=== PATIENT | female | born 1980 | race Caucasian/White ===

== ENCOUNTER → 2016-10-12 | Outpatient (CLI) | payer BC ==
--- NOTE | 2016-10-12 16:26 | Diagnostic Imaging Report ---
EXAMINATION: OB ultrasound. INDICATION: Check growth. FINDINGS: There are no previous exams available for comparison. Reportedly, the patient has had a prior ultrasound exam which indicated that the gestational age was approximately 29 weeks 0 days. Neither that exam nor a report of that study is available at this time however. There is a single live fetus in cephalic presentation. heart motion is noted and at a rate of 160 bpm is recorded. A complete survey is not performed, but there are no obvious abnormalities identified. The growth parameters are as follows: BPD: 7.74, 31 weeks 1 day. Head circumference: 27.38, 30 weeks 0 days. Abdominal circumference: 27.60, 31 weeks 5 days. Femur length: 6.02, 31 weeks 3 days. The estimated weight is 1744 g. The LMP percentile is 98%. The placenta is anterior and there is no previa. The amniotic fluid volume is 12.0 cm (normal 8-22 cm). IMPRESSION: 1. There is a single live fetus of approximately 31 weeks 3 days gestation +/- 2.5 weeks. By this exam, the EDC is December 13, 2016. 2. There are no obvious abnormalities identified. 3. The growth parameters suggest that the fetus is at the upper most limits of normal in size. Dictated by: Dictated on workstation # [id number]
== END ==
LOC: RAD 12:44
PROVIDERS: ATTEND Obstetrics & Gynecology
DX: O26.843 Uterine size-date discrepancy, third trimester (principal); Z3A.31 31 weeks gestation of pregnancy
CPT/HCPCS: 76805

== ENCOUNTER → 2016-11-09 | Outpatient (CLI) | payer BC ==
--- NOTE | 2016-11-09 14:36 | Diagnostic Imaging Report ---
INDICATION: Evaluate growth and dates. COMPARISON: 10/12/2016. DISCUSSION: Transabdominal sonographic evaluation of the gravid uterus was performed. There is a single live intrauterine at 32 weeks 6 days by sonographic measurements. There has been the expected interval growth from the first ultrasound. The EDC by today's ultrasound is 12/29/2016. The presentation is cephalic. There is a normal amniotic fluid index. A Grade 1 placenta is located anteriorly with no placenta previa. The heart rate measures 142 BPM. The biparietal diameter measures 8.7 cm. The head circumference measures 30.4 cm. The abdominal circumference measures 30.9 cm. The femoral length measures 5.1 cm on the right which correlates to a 27 week 4 day gestational age. The left femur measures 6.7 cm which correlates to a 34 week 2 day gestational age. The estimated weight is 2042 grams. IMPRESSION: 1. There is a single live intrauterine at 32 weeks 6 days by sonographic measurements. 2. There are discordant femur lengths present with the right correlating to a gestational age of 27 weeks 4 days and the left correlating with a gestational age of 34 weeks 2 days. Recommend clinical correlation. Dictated by: Dictated on workstation # [id number]
== END ==
LOC: RAD 12:49
PROVIDERS: ATTEND Obstetrics & Gynecology
DX: Z36 Encounter for antenatal screening of mother (principal); Z3A.32 32 weeks gestation of pregnancy
CPT/HCPCS: 76816

== ENCOUNTER 2016-12-13 14:16 | Outpatient (CLI) | payer BC ==
[~2016-12-13] VITALS: Ht 170.2 cm; Wt 135.2 kg
[2016-12-13] MEDS ORDERED: PREN-37 PO (14:23)
[2016-12-13 14:28] VITALS: BP 142/83
== END 2016-12-13 14:40 | disposition home or self-care (01) ==
LOC: PREOP 14:16
PROVIDERS: ATTEND Obstetrics & Gynecology
DX: Z01.818 Encounter for other preprocedural examination (principal); Z11.2 Encounter for screening for other bacterial diseases; O35.1XX0 Maternal care for (suspected) chromosomal abnormality in fetus, not applicable or unspecified; Q74.9 Unspecified congenital malformation of limb(s)
CPT/HCPCS: 87081

== ENCOUNTER 2016-12-21 06:06 | Inpatient (IN) | payer BC ==
[~2016-12-21] VITALS: Ht 170.2 cm; Wt 135.2 kg
[~2016-12-21 06:06] MED LIST: CITRIC ACID/SOB CIT (BICITRA) 30 ML UDC ONE; FAMOTIDINE 20MG/2ML IV (PEPCID) ONE; LACTATED RINGERS 2,000 ML IV ONE; METOCLOPRAMIDE INJ 10 MG/2 ML (REGLAN) ONE; PREN-37 PO
[2016-12-21] MEDS ORDERED: LACTATED RINGERS 1,000 ML IV PRN (06:15)
[2016-12-21] MEDS ORDERED: CITRIC ACID/SOB CIT (BICITRA) 30 ML UDC PO ONE (06:15)
[2016-12-21] MEDS ORDERED: FAMOTIDINE 20MG/2ML IV (PEPCID) IV ONE (06:15)
[2016-12-21] MEDS ORDERED: METOCLOPRAMIDE INJ 10 MG/2 ML (REGLAN) IV ONE (06:15)
[2016-12-21 06:16] VITALS: BP 137/78
[2016-12-21] MEDS: LACTATED RINGERS 1,000 ML IV PRN ×2 (06:32→07:16)
[2016-12-21 06:33] LABS: BASOPHILS % (AUTO) 0 % (0-10); EOSINOPHILS # (AUTO) 0.1 10^3/uL (0.0-0.3); EOSINOPHILS % (AUTO) 1 % (0-10); LYMPHOCYTES # (AUTO) 1.9 X 10^3 (1.0-4.0); LYMPHOCYTES % (AUTO) 16 % (12-44); MEAN CORPUSCULAR HEMOGLOBIN 26 PG (25-34); MEAN CORPUSCULAR HGB CONC 33 G/DL (32-36); MEAN CORPUSCULAR VOLUME 80 FL (80-99); MEAN PLATELET VOLUME 11.1 FL (7.4-10.4); MONOCYTES # (AUTO) 0.7 X 10^3 (0.0-1.0); MONOCYTES % (AUTO) 6 % (0-12); NEUTROPHILS # (AUTO) 9.5 X 10^3 (1.8-7.8); NEUTROPHILS % (AUTO) 77 % (42-75); PLATELET COUNT 175 10^3/uL (130-400); RED BLOOD COUNT 4.84 10^6/uL (4.35-5.85); RED CELL DISTRIBUTION WIDTH 15.5 % (10.0-14.5); WHITE BLOOD COUNT 12.3 10^3/uL (4.3-11.0)
[2016-12-21] MEDS ORDERED: ceFAZolin 2 GM/50 ML NS 50 ML ONE (06:37)
[2016-12-21] MEDS ORDERED: ceFAZolin 2 GM/50 ML NS 50 ML IV ONE (07:00)
[2016-12-21] MEDS ORDERED: fentaNYL INJECTION 100 MCG/2 ML AMP ONE (07:01)
[2016-12-21] MEDS ORDERED: OXYTOCIN/NORMAL SALINE 1,000 ML IV ONE (07:01)
--- NOTE | 2016-12-21 07:08 | History & Physical-OB ---
OB - Chief Complaint & HPI Date/Time Date of Admission: Date of Admission: Dec 21, 2016 at 06:06 Time Seen by Provider: 06:55 Chief Complaint/History OB-Reason for Admission/Chief: Obstetrical Complication Hx : 1 Hx Para: 0 Expected Date of Delivery: Dec 28, 2016 Gestational Age in Weeks: 39 Gestational Age in Days: 0 Other reason for admission: Bertha is a 36 y/o G1 @ 39w0d by 7 wk sono who presents for scheduled CD. Her was complicated by the third trimester dx of discordant femur lengths (R<L, R < 5%tile) - normal at 20 wga. She was seen by MFM who offered invasive testing however the patient declined after counseling. He was concerned that osteogenesis imperfecta could be a potential diagnosis, and discussed primary CD with her. I did as well and she elected to undergo this after extensive counseling on risks, benefits and alternatives. otherwise c/b class III obesity with normal GDM screening, AMA ( normal cffDNA), anemia on iron. History of Labs B+ Antibody neg RI Hep B neg Hep C neg HIV neg RPR NR GBS neg GC/CT neg/neg Allergies and Home Medications Allergies Coded Allergies: Sulfa (Sulfonamide Antibiotics) (Verified Allergy, Unknown, 12/13/16) Home Medications Vit/Iron Fumarate/FA 1 Each Tablet, 1 EACH PO DAILY, (Reported) OB - History Hx of Present Care: Yes Ultrasounds: Abnormal US findings (see HPI - discordant femur length (multiple sonos and visits with MFM)) Obstetrical Complications: Other (anemia, on iron) Medical Complications: Other (class III obesity) Information Induced Hypertension: No Maternal Gestational Diabetes: No Hemorrhage: No Obstetrical History Hx : 1 Delivery History Hx Dystocia: No Hx Forceps Assisted Delivery: No Hx Vacuum Extraction Assisted: No Hx Placenta Abnormality: No Hx Distress: No Hx Large For Gestational Age I: Yes Hx Small for Gestational Age I: No Hx Section: No Hx Vaginal Delivery Post C-Sec: No Hx Blood Disorders: No Adverse Rxn to Tranfusion: No Patient Past Medical History obesity Social History/Family History HIV/AIDS: No Recent Infectious Disease Expo: No Sexually Transmitted Disease: No Alcohol Use: Denies Use Recreational Drug Use: No Immunizations Hepatitis A: No Hepatitis B: No Tetanus Booster (TDap): Less than 5yrs Rubella: immune RPR/VDRL: Negative GBS Status: Negative HBsAG: Negative OB - Admission Exam Physical Exam Time Seen by Provider: 06:55 Vitals: per documentation analyst HEENT: NCAT Heart: Rhythm Normal Lungs: Clear Abdomen: Gravid Extremities: Edema (1+ pitting edema to mid tibia bilaterally) Reflexes: Normal Heart Rate: 140's Accelerations: Accelerations Present Decelerations: No Decelerations Short Term Variability: Present Residential Variability: Average (6-25) Contractions on Admission: 6-10 Minutes Apart Intensity: Mild Labs Laboratory Tests Test 12/21/16 06:25 Range/Units White Blood Count 12.3 H 4.3-11.0 10^3/uL Red Blood Count 4.84 4.35-5.85 10^6/uL Hemoglobin 12.8 11.5-16.0 G/DL Hematocrit 39 35-52 % Mean Corpuscular Volume 80 80-99 FL Mean Corpuscular Hemoglobin 26 25-34 PG Mean Corpuscular Hemoglobin Concent 33 32-36 G/DL Red Cell Distribution Width 15.5 H 10.0-14.5 % Platelet Count 175 130-400 10^3/uL Mean Platelet Volume 11.1 H 7.4-10.4 FL Neutrophils (%) (Auto) 77 H 42-75 % Lymphocytes (%) (Auto) 16 12-44 % Monocytes (%) (Auto) 6 0-12 % Eosinophils (%) (Auto) 1 0-10 % Basophils (%) (Auto) 0 0-10 % Neutrophils # (Auto) 9.5 H 1.8-7.8 X 10^3 Lymphocytes # (Auto) 1.9 1.0-4.0 X 10^3 Monocytes # (Auto) 0.7 0.0-1.0 X 10^3 Eosinophils # (Auto) 0.1 0.0-0.3 10^3/uL Basophils # (Auto) 0.0 0.0-0.1 10^3/uL OB - Assessment/Plan/Diagnosis Plan Plan: Section Other Plan 36 y/o G1 @ 39w0d with scheduled CD for concern for osteogenesis imperfecta due to discordant femur lengths. GBS neg Class III obesity Rh+ RI Anemia on iron Bertha, her spouse and I have had long conversations about the risks, benefits and alternatives to a primary CD for the purpose of reducing risk to the if osteogenesis imperfecta is diagnosed. We also discussed the risk of her requiring a CD given the suspected large EFW of the fetus and her primiparous status and obesity. I do think the risk to the fetus is overall low , however she is unwilling to accept that risk and I understand this. Will proceed with CD. Risks specifically of bleeding, infection, damage to surrounding structures (including but not limited to bowel, bladder, ureter, nerves, blood vessels, structures as well) were discussed. Anc john-op Spinal for analgesia To OR for CD this morning. Dr. Singleton to be in attendance - greatly appreciate her assistance. Dr. Murrell in [place] will be tag clerk for baby and has already been contacted regarding the concerning ultrasound findings. RAÚL LACEY MD Dec 21, 2016 07:07
--- NOTE | 2016-12-21 07:11 | Cesarean Section Operative ---
Procedure Procedure Note Date of Procedure: 12/21/16 Pre-operative Diagnosis: Bertha Parra is a 36 y/o G1 @ 39w0d with primary CD for discordant femur lengths and concern for osteogenesis imperfecta, class III obesity Post-operative Diagnosis: Same Procedure: Primary low transverse section Physician: Ewelina Rivero MD Knit Goods Washer: Evelyn Silveira APRN who was vital to the case for retraction of necessary neurovascular structures Estimated blood loss: 600 mL Specimens: Placenta to pathology, cord blood to lab Disposition: Recovery room, stable Findings: Viable female , Apgars 8/9, weight 8lb2oz, intact placenta, 3vc, normal appearing uterus, tubes, and ovaries. Indications: Bertha Parra is a 36 y/o G1 @ 39w0d who presented for scheduled CD for the concern for osteogenesis imperfecta due to possible fracture in the right femur on ultrasound, counseled and seen by maternal medicine. Procedure Details: The patient was seen in pre-op and the procedure was discussed with the patient in full, including the risks, benefits, and alternatives. All questions were answered. The patient was taken to the operating room and a time out was performed, verifying patient and procedure. After spinal anesthesia was placed by our anesthesia colleagues, the patient was placed in the dorsal supine with leftward tilt for uterine displacement. Her abdomen was then prepped and draped in the typical sterile fashion. A Pfannenstiel skin incision was made using a scalpel and carried down through the underlying fascia. The fascia was incised in the midline and tented up using Manolo clamps. On both the inferior and superior fascia side the rectus muscle was dissected off bluntly and sharply using Lynne scissors. The peritoneum was identified and entered bluntly in the midline. This was then stretched laterally using manual strength. After entering the abdominal cavity and confirming lack of intraperitoneal adhesions, an extra-large Ferny retractor was placed and the lower uterine segment was visualized. A bladder flap was created with the use of Metzenbaum scissors. A scalpel was utilized to make a low transverse uterine incision. Amniotomy was performed with return of clear fluid. The infant's head was grasped and brought to the level of the incision. Fundal pressure was applied and was delivered without difficulty. Mouth and nares were suctioned with bulb suction. After the umbilical cord was clamped and cut, the infant was handed off to the pediatric staff. A sample of cord blood was then obtained. The placenta was delivered intact via uterine massage. The uterus was cleared of all clots and debris. The uterine incision was closed using 0 Vicryl in a running locked fashion. A second imbricated layer was placed using 0 Vicryl in a running fashion as well. Again the hysterotomy site was examined and hemostasis was observed. The bilateral tubes and ovaries appeared normal. The abdominal gutters were cleared of all clots and debris. A final check of the uterine incision showed it to be hemostatic. Intercede was placed on the hysterotomy. The peritoneum was closed using 3-0 Vicryl in a running fashion. The fascia was closed with 0 Vicryl in a running fashion. The subcutaneous space was hemostatic, and irrigated. The subcutaneous space was closed with 3-0 Vicryl in several single interrupted stitches. The skin was then closed using 4- 0 Monocryl in a running subcuticular fashion. The skin edges were reapproximated together and were hemostatic. A pressure dressing was applied. All sponge, lap and needle counts were correct at the end of the procedure per nursing. Vitals - Labs Labs Laboratory Tests 12/21/16 06:25: White Blood Count 12.3H, Red Blood Count 4.84, Hemoglobin 12.8, Hematocrit 39, Mean Corpuscular Volume 80, Mean Corpuscular Hemoglobin 26, Mean Corpuscular Hemoglobin Concent 33, Red Cell Distribution Width 15.5H, Platelet Count 175, Mean Platelet Volume 11.1H, Neutrophils (%) (Auto) 77H, Lymphocytes (%) (Auto) 16, Monocytes (%) (Auto) 6, Eosinophils (%) (Auto) 1, Basophils (%) (Auto) 0, Neutrophils # (Auto) 9.5H, Lymphocytes # (Auto) 1.9, Monocytes # (Auto) 0.7, Eosinophils # (Auto) 0.1, Basophils # (Auto) 0.0 EWELINA RIVERO MD Dec 21, 2016 07:11
[2016-12-21] MEDS ORDERED: DOCU-143 PO (07:21)
[2016-12-21] MEDS ORDERED: IBUP-1773 PO (07:21)
[2016-12-21] MEDS ORDERED: OXYC-197 PO (07:21)
--- NOTE | 2016-12-21 07:23 | Discharge Inst-Women's Service ---
Discharge Inst-Women's Serv Depart Medication/Instructions New, Converted or Re-Newed RX: RX on Chart (and transmitted to pharmacy) Final Diagnosis TIUP, femur length discrepancy, primary CD Consults/Follow Up Additional Follow Up: Yes Orders/Referrals One week with Dr. Rivero Six weeks with Dr. Rivero Activity Driving Instructions: No Driving for 1 Week (or while taking narcotic pain medication) NO SMOKING: NO SMOKING Nothing Inside Vagina: No Douching, No Gully, No Tampons Other Activity No strenuous activity No lifting > 10 lb Diet Discharge Diet: No Restrictions Symptoms to Report to : Bleeding Excessive, Pain Increased, Fever Over 101 Degrees F, Pain/Pressure in Chest, Vaginal Bleeding Increase, Dizziness/Fainting , Nausea/Vomiting, Shortness of Breath For Any Problems or Questions: Contact Your Physician, Go to Emergency Room Skin/Wound Care Infection Signs and Symptoms: Increased Redness, Foul Odor of Wound, Increased Drainage Operative Area Clean and Dry: Keep Incision Clean/Dry Stitches/[place]/Dermabond: Dermabond, Care of Stitches Bathing Instructions: RAÚL Walton MD Dec 21, 2016 07:23
[2016-12-21] MEDS ORDERED: PHENYLEPHRINE 100 MCG/ML 10 ML (ANESTHESIA) SYR ONE (07:24)
[2016-12-21] MEDS ORDERED: KETOROLAC 30 MG/ML VIAL ONE (09:46)
[2016-12-21] MEDS ORDERED: OXYTOCIN/NORMAL SALINE 500 ML IV SCH (09:52)
[2016-12-21] MEDS ORDERED: oxyCODONE/APAP 5/325MG (PERCOCET 5) TABLET PO PRN (10:00)
[2016-12-21] MEDS ORDERED: morphine INJ 4 MG/ML 1 ML (VIAL/SYRINGE) IVP PRN (10:00)
[2016-12-21] MEDS ORDERED: KETOROLAC 30 MG/ML VIAL IVP SCH (10:00)
[2016-12-21 10:45] VITALS: BP 132/77
[2016-12-21] MEDS ORDERED: CATHETER FLUSH 10 ML SYR IV SCH ×2 (14:00)
[2016-12-21 14:27] VITALS: BP 146/88
[2016-12-21] MEDS ORDERED: IBUPROFEN 600 MG (MOTRIN) TAB PO ONE (18:45)
[2016-12-21] MEDS: DOCUSATE SODIUM 100 MG (COLACE) CAP PO SCH (20:59)
[2016-12-21 21:00] VITALS: BP 142/93
[2016-12-22] MEDS ORDERED: IBUPROFEN 800 MG (MOTRIN) TAB PO ONE ×2 (00:27→06:14)
[2016-12-22] MEDS: IBUPROFEN 800 MG (MOTRIN) TAB PO SCH ×2 (00:33→06:22)
[2016-12-22 00:35] VITALS: BP 145/87
[2016-12-22 04:57] VITALS: BP 142/92
[2016-12-22 05:10] LABS: BASOPHILS % (AUTO) 0 % (0-10); EOSINOPHILS # (AUTO) 0.1 10^3/uL (0.0-0.3); EOSINOPHILS % (AUTO) 1 % (0-10); LYMPHOCYTES # (AUTO) 1.2 X 10^3 (1.0-4.0); LYMPHOCYTES % (AUTO) 12 % (12-44); MEAN CORPUSCULAR HEMOGLOBIN 26 PG (25-34); MEAN CORPUSCULAR HGB CONC 32 G/DL (32-36); MEAN CORPUSCULAR VOLUME 81 FL (80-99); MEAN PLATELET VOLUME 10.8 FL (7.4-10.4); MONOCYTES # (AUTO) 0.6 X 10^3 (0.0-1.0); MONOCYTES % (AUTO) 6 % (0-12); NEUTROPHILS # (AUTO) 8.1 X 10^3 (1.8-7.8); NEUTROPHILS % (AUTO) 81 % (42-75); PLATELET COUNT 141 10^3/uL (130-400); RED CELL DISTRIBUTION WIDTH 15.5 % (10.0-14.5); WHITE BLOOD COUNT 9.9 10^3/uL (4.3-11.0)
[2016-12-22 07:51] LABS: ALANINE AMINOTRANSFERASE 10 U/L (0-55); ALBUMIN 2.9 GM/DL (3.2-4.5); ANION GAP 11 MMOL/L (5-14); ASPARTATE AMINO TRANSFERASE 19 U/L (5-34); BILIRUBIN,TOTAL 0.2 MG/DL (0.1-1.0); BLOOD UREA NITROGEN 8 MG/DL (7-18); BUN/CREATININE RATIO 13 (0-20); CALCIUM 9.1 MG/DL (8.5-10.1); CARBON DIOXIDE 19 MMOL/L (21-32); CHLORIDE 107 MMOL/L (98-107); CREATININE SERUM 0.62 MG/DL (0.60-1.30); GFR ESTIMATED > 60; GLUCOSE 95 MG/DL (70-105); LACTATE DEHYDROGENASE 270 U/L (125-220); POTASSIUM 3.9 MMOL/L (3.6-5.0); SODIUM 137 MMOL/L (135-145); TOTAL PROTEIN 6.1 GM/DL (6.4-8.2); URIC ACID 6.2 MG/DL (2.6-7.2)
--- NOTE | 2016-12-22 08:03 | Postpartum Progress Note ---
Post Op Post-operative Day #1 Subjective: Patient is without complaints. Ambulating, voiding after szymanski removed. Tolerating a regular diet without nausea or vomiting. Normal lochia. Pain is well controlled with oral pain medications. Passing flatus. Breast feeding. Objective: VS - Last 72 Hours, by Label 12/21/16 12/21/16 12/21/16 12/21/16 06:16 10:45 14:27 15:41 Temp 98.7 98.5 98.3 Pulse 115 94 98 Resp 20 20 20 B/P (MAP) 137/78 132/77 146/88 Pulse Ox 96 98 O2 Delivery Room Air Room Air Room Air Room Air 12/21/16 12/22/16 12/22/16 21:00 00:35 04:57 Temp 98.6 98.2 97.6 Pulse 91 88 89 Resp 18 18 18 B/P (MAP) 142/93 145/87 142/92 Pulse Ox 96 96 97 O2 Delivery Room Air Room Air Room Air Physical Exam: General - Alert and oriented, no apparent distress Abdomen - Soft, appropriately tender to palpation, non-distended, fundus firm at umbilicus Incision - clean, dry and intact; no erythema or induration, no drainage Extremities - no edema, negative Zina's bilaterally Assessment: 36 y/o post-operative day # 1, status post PLTCS due to concern for osteogenesis imperfecta. Recovering well, hemodynamically stable Acute blood loss anemia Hgb 10.7 Obesity BMI 47 HTN noted Plan: Routine post-operative care. Encourage breast feeding. Encourage ambulation. VTE prophylaxis: SCDs, lovenox BPs elevated, check HELLP labs, normal during , no si/sx pre-eclampsia Ferrous sulfate supplementation. Plan for discharge POD#2 or 3. Vitals - Labs Vital Signs - I&O Vital Signs Date Time Temp Pulse Resp B/P (MAP) Pulse Ox O2 Delivery O2 Flow Rate FiO2 12/22/16 04:57 97.6 89 18 142/92 97 Room Air 12/22/16 00:35 98.2 88 18 145/87 96 Room Air 12/21/16 21:00 98.6 91 18 142/93 96 Room Air 12/21/16 15:41 Room Air 12/21/16 14:27 98.3 98 20 146/88 98 Room Air 12/21/16 10:45 98.5 94 20 132/77 96 Room Air I & O 12/22/16 07:00 Intake Total 3400 ml Output Total 3025 ml Balance 375 ml Labs Laboratory Tests 12/22/16 04:51: White Blood Count 9.9, Red Blood Count 4.10L, Hemoglobin 10.7L, Hematocrit 33L, Mean Corpuscular Volume 81, Mean Corpuscular Hemoglobin 26, Mean Corpuscular Hemoglobin Concent 32, Red Cell Distribution Width 15.5H, Platelet Count 141, Mean Platelet Volume 10.8H, Neutrophils (%) (Auto) 81H, Lymphocytes (%) (Auto) 12, Monocytes (%) (Auto) 6, Eosinophils (%) (Auto) 1, Basophils (%) (Auto) 0, Neutrophils # (Auto) 8.1H, Lymphocytes # (Auto) 1.2, Monocytes # (Auto) 0.6, Eosinophils # (Auto) 0.1, Basophils # (Auto) 0.0 12/22/16 04:54: Sodium Level 137, Potassium Level 3.9, Chloride Level 107, Carbon Dioxide Level 19L, Anion Gap 11, Blood Urea Nitrogen 8, Creatinine 0.62, Estimat Glomerular Filtration Rate > 60, BUN/Creatinine Ratio 13, Glucose Level 95, Uric Acid 6.2, Calcium Level 9.1, Total Bilirubin 0.2, Aspartate Amino Transf (AST/SGOT) 19, Alanine Aminotransferase (ALT/SGPT) 10, Alkaline Phosphatase 87, Lactate Dehydrogenase 270H, Total Protein 6.1L, Albumin 2.9L RAÚL LACEY MD Dec 22, 2016 08:03
--- NOTE | 2016-12-22 08:33 | Anesthesia-Regional Post-Op ---
Regional Patient Condition Mental Status: Alert, Oriented x3 Circulation: Same as Pre-Op Headache: Absent Sensation: Full Recovery Motor Block: Absent Post Op Complications Complications None Follow Up Care/Instructions Patient Instructions None needed. Anesthesia/Patient Condition Patient is doing well, no complaints, stable vital signs, no apparent adverse anesthesia problems. No complications reported per nursing. D/C home per [facility] Criteria: DAVID Lawrence DO Dec 22, 2016 08:33
[2016-12-22 09:13] VITALS: BP 125/81
[2016-12-22] MEDS: DOCUSATE SODIUM 100 MG (COLACE) CAP PO SCH ×2 (09:13→21:27)
[2016-12-22] MEDS: ENOXAPARIN 40 MG/0.4 ML (LOVENOX) SYR SC SCH (09:13)
[2016-12-22 12:40] VITALS: BP 132/81
[2016-12-22 17:45] VITALS: BP 143/80
[2016-12-22 21:37] VITALS: BP 132/79
[2016-12-23] VITALS: BP 131/74
[2016-12-23] MEDS: IBUPROFEN 800 MG (MOTRIN) TAB PO SCH ×3 (00:03→12:29)
[2016-12-23 06:00] VITALS: BP 126/75
[2016-12-23 08:15] VITALS: BP 126/84
[2016-12-23] MEDS: ENOXAPARIN 40 MG/0.4 ML (LOVENOX) SYR SC SCH (08:33)
[2016-12-23] MEDS: DOCUSATE SODIUM 100 MG (COLACE) CAP PO SCH (08:33)
--- NOTE | 2016-12-23 08:51 | Progress Note-Standard ---
Standard Progress Note Progress Notes/Assess & Plan Date Seen by Provider: Dec 23, 2016 Time Seen by Provider: 07:30 Progress/Assessment & Plan Patient doing well. Eating breakfast upon my arrival. Ambulating and voiding freely, requesting discharge. Vital Sign - Last 24 Hours 12/22/16 12/22/16 12/22/16 12/22/16 09:13 12:40 17:45 21:37 Temp 97.8 99.2 98.7 97.8 Pulse 93 96 97 92 Resp 20 18 18 18 B/P (MAP) 125/81 132/81 143/80 132/79 O2 Delivery Room Air Room Air Room Air Room Air 12/23/16 12/23/16 12/23/16 00:00 06:00 08:15 Temp 98.7 98.0 98.0 Pulse 100 95 91 Resp 18 B/P (MAP) 131/74 126/75 126/84 Pulse Ox 96 97 98 O2 Delivery Room Air Room Air Room Air Intake and Output 12/22/16 12/22/16 12/23/16 15:00 23:00 07:00 Intake Total 2200 ml 1500 ml Output Total 2925 ml 400 ml Balance -725 ml 1100 ml Incision: c/d/i per RN- patient eating at time of my evaluation. Diagnosis: POD 2 PLTCS P: Anticipate dc today, PP and PO precautions reviewed. JULISA WHITE DO Dec 23, 2016 8:51 am
[2016-12-23 14:20] VITALS: BP 126/84
== END 2016-12-23 14:20 | disposition home or self-care (01) | DRG 765 ==
LOC: LDRP 06:06
PROVIDERS: ADMIT Obstetrics & Gynecology; ATTEND Obstetrics & Gynecology
PROC: 3E0P05Z Introduction of Adhesion Barrier into Female Reproductive, Open Approach (ICD-10-PCS; 2016-12-21)
PROC: 10D00Z1 Extraction of Products of Conception, Low, Open Approach (ICD-10-PCS; principal; 2016-12-21 07:18)
DX: O99.213 Obesity complicating pregnancy, third trimester (principal); E66.9 Obesity, unspecified; Z68.42 Body mass index [BMI] 45.0-49.9, adult; O99.013 Anemia complicating pregnancy, third trimester; O99.03 Anemia complicating the puerperium; D62 Acute posthemorrhagic anemia; Z3A.39 39 weeks gestation of pregnancy; Z37.0 Single live birth
CPT/HCPCS: 36415; 80053; 83615; 84550; 85025; 86850; 86900; 86901; 94664

== ENCOUNTER 2019-08-23 05:40 | Outpatient (CLI) | payer BC ==
[~2019-08-23] VITALS: Ht 170 cm; Wt 135.0 kg
[~2019-08-23 05:40] MED LIST changes: -CITRIC ACID/SOB CIT (BICITRA) 30 ML UDC ONE; +DOCU-143 PO; -FAMOTIDINE 20MG/2ML IV (PEPCID) ONE; +IBUP-1773 PO; -LACTATED RINGERS 2,000 ML IV ONE; -METOCLOPRAMIDE INJ 10 MG/2 ML (REGLAN) ONE; +OXYC1TAB87 PO
== END 2019-08-23 15:18 | disposition home or self-care (01) ==
LOC: PREOP 05:40
PROVIDERS: ATTEND Obstetrics & Gynecology
DX: Z01.818 Encounter for other preprocedural examination (principal)
CPT/HCPCS: 87081

== ENCOUNTER 2019-08-30 10:15 | Inpatient (IN) | payer BC ==
[2019-08-30] VITALS (7 sets, daily range): BP systolic 66–133; BP diastolic 52–81
[~2019-08-30] VITALS: Ht 170 cm; Wt 136.3 kg
--- NOTE | 2019-08-30 10:20 | NUR ---
HARPREET HORTON admitted to room 3315-1, with an admitting diagnosis of repeat section, on 08/30/19 from home via ambulation, accompanied by s/o.HARPREET HORTON introduced to surroundings, call light, bed controls, phone, TV, temperature control, lights, meal times, smoking policy, visitor policy, side rail policy, bathrooms and showers. Patient Rights given to patient in the handbook. HARPREET HORTON verbalizes understanding that [facility] is not responsible for the loss or damage to any personal effects or valuables that are kept in the patients posession during their hospitalization. The following Patient Care Plans were discussed with the patient: Discharge Planning, pain management, preop, and postop care plan. HARPREET HORTON verbalizes understanding of Interdisciplinary Patient Education. Patient and/or family were informed about the Rapid Response Team and its purpose.
[2019-08-30] MEDS ORDERED: ceFAZolin INJECTION 1,000 MG in WATER (STERILE) FOR INJECTION 10 ML IV ONE (11:30)
[2019-08-30 11:37] LABS: BASOPHILS % (AUTO) 0 % (0-10); EOSINOPHILS # (AUTO) 0.1 10^3/uL (0.0-0.3); EOSINOPHILS % (AUTO) 1 % (0-10); HEMATOCRIT 36 % (35-52); HEMOGLOBIN 12.1 G/DL (11.5-16.0); LYMPHOCYTES # (AUTO) 1.3 X 10^3 (1.0-4.0); LYMPHOCYTES % (AUTO) 14 % (12-44); MEAN CORPUSCULAR HEMOGLOBIN 27 PG (25-34); MEAN CORPUSCULAR HGB CONC 34 G/DL (32-36); MEAN CORPUSCULAR VOLUME 81 FL (80-99); MEAN PLATELET VOLUME 11.5 FL (7.4-10.4); MONOCYTES # (AUTO) 0.6 X 10^3 (0.0-1.0); MONOCYTES % (AUTO) 6 % (0-12); NEUTROPHILS # (AUTO) 7.4 X 10^3 (1.8-7.8); NEUTROPHILS % (AUTO) 79 % (42-75); PLATELET COUNT 153 10^3/uL (130-400); RED CELL DISTRIBUTION WIDTH 16.2 % (10.0-14.5); WHITE BLOOD COUNT 9.4 10^3/uL (4.3-11.0)
[2019-08-30] MEDS ORDERED: METOCLOPRAMIDE INJ 10 MG/2 ML (REGLAN) ONE (11:41)
[2019-08-30] MEDS ORDERED: LACTATED RINGERS 1,000 ML IV ONE (11:41)
[2019-08-30] MEDS ORDERED: CITRIC ACID/SOB CIT (BICITRA) 30 ML UDC ONE (11:41)
[2019-08-30] MEDS ORDERED: FAMOTIDINE 20MG/2ML IV (PEPCID) ONE (11:41)
[2019-08-30] MEDS ORDERED: LACTATED RINGERS 1,000 ML IV PRN (11:42)
[2019-08-30] MEDS ORDERED: METOCLOPRAMIDE INJ 10 MG/2 ML (REGLAN) IV ONE (11:45)
[2019-08-30] MEDS ORDERED: FAMOTIDINE 20MG/2ML IV (PEPCID) IV ONE (11:45)
[2019-08-30] MEDS ORDERED: CITRIC ACID/SOB CIT (BICITRA) 30 ML UDC PO ONE (11:45)
[2019-08-30] MEDS ORDERED: CATHETER FLUSH 10 ML SYR IV PRN (11:45)
[2019-08-30 11:47] LABS: ALANINE AMINOTRANSFERASE 10 U/L (0-55); ALBUMIN 3.3 GM/DL (3.2-4.5); ALKALINE PHOSPHATASE 113 U/L (40-136); BILIRUBIN,TOTAL 0.2 MG/DL (0.1-1.0); BUN/CREATININE RATIO 16; CALCIUM 8.9 MG/DL (8.5-10.1); CARBON DIOXIDE 20 MMOL/L (21-32); CHLORIDE 107 MMOL/L (98-107); CREATININE SERUM 0.64 MG/DL (0.60-1.30); GFR ESTIMATED > 60; GLUCOSE 76 MG/DL (70-105); POTASSIUM 3.9 MMOL/L (3.6-5.0); SODIUM 137 MMOL/L (135-145); TOTAL PROTEIN 6.6 GM/DL (6.4-8.2)
[2019-08-30] MEDS: LACTATED RINGERS 1,000 ML IV PRN ×2 (11:50→13:33)
[2019-08-30] MEDS ORDERED: OXYTOCIN PRE-MIX DRIP 1,000 ML IV ONE (12:14)
[2019-08-30] MEDS ORDERED: fentaNYL INJECTION 100 MCG/2 ML AMP ONE (12:19)
[2019-08-30] MEDS ORDERED: ROPIVACAINE 5MG/ML 30ML VIAL ONE (12:19)
--- NOTE | 2019-08-30 12:32 | Progress Note-Pre Operative ---
Pre-Operative Progress Note H&P Reviewed The H&P was reviewed, patient examined and no changes noted. Date Seen by Provider: Aug 30, 2019 Time Seen by Provider: 12:15 Date H&P Reviewed: Aug 30, 2019 Time H&P Reviewed: 10:30 Pre-Operative Diagnosis: previous sectio n RAFAELA FLETCHER DO Aug 30, 2019 12:32
[2019-08-30] MEDS ORDERED: ceFAZolin INJECTION 0 MG ONE (12:43)
[2019-08-30] MEDS ORDERED: PHENYLEPHRINE 100 MCG/ML 10 ML (ANESTHESIA) SYR ONE (13:22)
[2019-08-30] MEDS ORDERED: ceFAZolin INJECTION 2,000 MG ONE (13:35)
[2019-08-30] MEDS ORDERED: OXYTOCIN PRE-MIX DRIP 500 ML IV SCH (13:37)
--- NOTE | 2019-08-30 13:43 | Cesarean Section Operative ---
Procedure Procedure Note Pre-operative Diagnosis: Bertha Parra is a 38 /Para 3/2 ,Gestational Age 39 weeks with history of previous section; advanced maternal age, multiparous Post-operative Diagnosis: same Procedure: Repeat low transverse section Physician: RAFAELA FLETCHER Estimated blood loss: 800 mL Disposition: stable Findings: Viable male infant, Apgars 8/9, weight 8$4ounces, intact placenta, 3vc, normal appearing uterus, tubes, and ovaries. Nuchal cord x 2 reduced at time of delivery 4 cm left broad ligament fibroid Indications:Bertha Parra is a38 /Para 3/2 ,Gestational Age 39 weeks with history of previous section; advanced maternal age, multiparous; presenting for repeat section Procedure Details: The patient was seen in pre-op and the procedure was discussed with the patient in full, including the risks, benefits, and alternatives. All questions were answered. The patient was taken to the operating room and a time out was p erformed, verifying patient and procedure. After spinal anesthesia was placed by our anesthesia colleagues, the patient was placed in the dorsal supine with leftward tilt for uterine displacement.~ Her abdomen was then prepped and draped in the typical sterile fashion. A Pfannenstiel skin incision was made using a scalpel and carried down through the underlying fascia. The fascia was incised in the midline and tented up using Manolo clamps. On both the inferior and superior fascia side the rectus muscle was dissected off bluntly and sharply using Lynne scissors. The peritoneum was identified and entered bluntly in the midline. This was then stretched laterally using manual strength. After entering the abdominal cavity and confirming lack of intraperitoneal adhesions, a large Ferny retractor was placed and the lower uterine segment was visualized. A scalpel was utilized to make a low transverse uterine incision. Amniotomy was performed with an Allis clamp with return of clear fluid. The infant's head was grasped and brought to the level of the incision. the silastic suction was used to help facilitate delivery of the hear. Fundal pressure was applied and infant was delivered without difficulty. Mouth and nares were suctioned with bulb suction. After the umbilical cord was clamped and cut, the infant was handed off to the pediatric staff. A sample of cord blood was then obtained. The placenta was delivered intact via uterine massage. The uterus was cleared of all clots and debris. The uterine incision was closed using 0 Vicryl in a running locked fashion. A second imbricated layer was placed using 0 Vicryl in a running fashion as well. The bilateral tubes and ovaries appeared normal. The abdominal gutters were cleared of all clots and debris. A final check of the uterine incision showed it to be hemostatic. The peritoneum was closed using 3-0 Vicryl in a running fashion. The fascia was closed with 0 Vicryl in a running fashion. The subcutaneous space was hemostatic, and irrigated. The subcutaneous space was closed with 3-0 Vicryl in several single interrupted stitches. The skin was then closed using 4-0 Monocryl in a running subcuticular fashion. The skin edges were reapproximated together and were hemostatic. A pressure dressing was applied. All sponge, lap and needle counts were correct at the end of the procedure per nursing. Vitals - Labs Vital Signs - I&O Vital Signs Date Time Temp Pulse Resp B/P (MAP) Pulse Ox O2 Delivery O2 Flow Rate FiO2 08/30/19 11:31 36.8 90 20 99 Room Air Labs Laboratory Tests 08/30/19 10:50: White Blood Count 9.4, Red Blood Count 4.46, Hemoglobin 12.1, Hematocrit 36, Mean Corpuscular Volume 81, Mean Corpuscular Hemoglobin 27, Mean Corpuscular Hemoglobin Concent 34, Red Cell Distribution Width 16.2H, Platelet Count 153, Mean Platelet Volume 11.5H, Neutrophils (%) (Auto) 79H, Lymphocytes (%) (Auto) 14, Monocytes (%) (Auto) 6, Eosinophils (%) (Auto) 1, Basophils (%) (Auto) 0, Neutrophils # (Auto) 7.4, Lymphocytes # (Auto) 1.3, Monocytes # (Auto) 0.6, Eosi nophils # (Auto) 0.1, Basophils # (Auto) 0.0, Sodium Level 137, Potassium Level 3.9, Chloride Level 107, Carbon Dioxide Level 20L, Anion Gap 10, Blood Urea Nitrogen 10, Creatinine 0.64, Estimat Glomerular Filtration Rate > 60, BUN/Crea tinine Ratio 16, Glucose Level 76, Calcium Level 8.9, Corrected Calcium 9.5, Total Bilirubin 0.2, Aspartate Amino Transf (AST/SGOT) 13, Alanine Aminotransferase (ALT/SGPT) 10, Alkaline Phosphatase 113, Total Protein 6.6, Albumin 3.3 Microbiology 08/23/19 MRSA Screen - Final, Complete MRSA not isolated RAFAELA FLETCHER DO Aug 30, 2019 13:43
[2019-08-30] MEDS ORDERED: MEASLES,MUMPS,RUBELLA 1 EA INJ SC SCH (13:45)
[2019-08-30] MEDS ORDERED: TETANUS,DIPTH,PERTUSS P/F (BOOSTRIX) 0.5 ML VIAL IM SCH (13:45)
[2019-08-30] MEDS ORDERED: morphine INJ 4 MG/ML 1 ML (VIAL/SYRINGE) IVP PRN (13:45)
[2019-08-30] MEDS ORDERED: ceFAZolin 2 GM/50 ML NS 50 ML IV ONE (13:45)
[2019-08-30] MEDS ORDERED: KETOROLAC 30 MG/ML VIAL ONE (13:46)
[2019-08-30] MEDS ORDERED: CATHETER FLUSH 10 ML SYR IV SCH (14:00)
[2019-08-30] MEDS ORDERED: HYDROmorphone 2 MG/ML VIAL (DILAUDID) IV ONE (14:30)
[2019-08-30] MEDS ORDERED: ONDANSETRON 4 MG/2 ML (SDV) Z0FRAN IVP PRN (14:30)
--- NOTE | 2019-08-30 14:55 | NUR ---
PT REPORT RECEIVED FROM BRANDON MONTOYA AT THIS TIME.
--- NOTE | 2019-08-30 15:05 | NUR ---
THIS RN AT BEDSIDE, INTRODUCES SELF TO PT AND SO. FUNDUS FIRM MIDLINE AND LEVEL WITH UMBILICUS, LIGHT/SMALL BLEEDING, NO CLOTS. VSS. DENIES NEEDS AT THIS TIME. REMAINS AT BEDSIDE. PT ATTEMPTING TO BREASTFEED AT THIS TIME. CALL LIGHT WITHIN REACH.
[2019-08-30] MEDS: KETOROLAC 30 MG/ML VIAL IV SCH (20:01)
[2019-08-30] MEDS: DOCUSATE SODIUM 100 MG (COLACE) CAP PO SCH (22:16)
[2019-08-30] MEDS: ACETAMINOPHEN 500 MG TAB (TYLENOL) PO SCH (22:16)
[2019-08-31 00:30] VITALS: BP 142/66
[2019-08-31] MEDS: KETOROLAC 30 MG/ML VIAL IV SCH ×2 (02:00→08:51)
[2019-08-31 04:15] VITALS: BP 120/60
[2019-08-31] MEDS ORDERED: MILK OF MAGNESIA 400 MG/5 ML 30 ML UDC PO PRN (05:00)
[2019-08-31 05:40] LABS: BASOPHILS % (AUTO) 0 % (0-10); EOSINOPHILS # (AUTO) 0.1 10^3/uL (0.0-0.3); EOSINOPHILS % (AUTO) 1 % (0-10); HEMATOCRIT 32 % (35-52); HEMOGLOBIN 10.3 G/DL (11.5-16.0); LYMPHOCYTES # (AUTO) 1.6 X 10^3 (1.0-4.0); LYMPHOCYTES % (AUTO) 18 % (12-44); MEAN CORPUSCULAR HEMOGLOBIN 26 PG (25-34); MEAN CORPUSCULAR HGB CONC 32 G/DL (32-36); MEAN CORPUSCULAR VOLUME 83 FL (80-99); MEAN PLATELET VOLUME 10.8 FL (7.4-10.4); MONOCYTES # (AUTO) 0.5 X 10^3 (0.0-1.0); MONOCYTES % (AUTO) 6 % (0-12); NEUTROPHILS # (AUTO) 6.4 X 10^3 (1.8-7.8); NEUTROPHILS % (AUTO) 75 % (42-75); PLATELET COUNT 129 10^3/uL (130-400); RED CELL DISTRIBUTION WIDTH 15.9 % (10.0-14.5); WHITE BLOOD COUNT 8.6 10^3/uL (4.3-11.0)
[2019-08-31] MEDS: ACETAMINOPHEN 500 MG TAB (TYLENOL) PO SCH (06:01)
--- NOTE | 2019-08-31 07:19 | Anesthesia-Regional Post-Op ---
Regional Patient Condition Mental Status: Alert, Oriented x3 Circulation: Same as Pre-Op Headache: Absent Sensation: Full Recovery Motor Block: Absent Post Op Complications Complications None Follow Up Care/Instructions Patient Instructions None needed. Anesthesia/Patient Condition Patient is doing well, no complaints, stable vital signs, no apparent adverse anesthesia problems. No complications reported per nursing. D/C home per [facility] Criteria: JASMEET Loera CRNA Aug 31, 2019 07:19
[2019-08-31 08:45] VITALS: BP 129/78
[2019-08-31] MEDS ORDERED: IBUPROFEN 600 MG (MOTRIN) TAB PO ONE (08:49)
[2019-08-31] MEDS: DOCUSATE SODIUM 100 MG (COLACE) CAP PO SCH ×2 (09:00→20:17)
--- NOTE | 2019-08-31 12:32 | Postpartum Progress Note ---
Post Op Post-operative Day #1 s/p RLTCS Subjective: Patient is without complaints. Ambulating, voiding after szymanski removed. Tolerating a regular diet without nausea or vomiting. Normal lochia. Pain is well controlled with oral pain medications. Passing flatus. [] feeding. [] Objective: 08/31/19 08/31/19 04:15 08:45 Temp 36.8 37.0 Pulse 80 92 Resp 20 18 B/P (MAP) 120/60 (80) 129/78 (95) Pulse Ox 95 98 O2 Delivery Room Air Room Air 08/31/19 00:00 Intake Total 1050 ml Output Total 300 ml Balance 750 ml Laboratory Tests Test 08/31/19 05:35 Range/Units White Blood Count 8.6 4.3-11.0 10^3/uL Red Blood Count 3.90 L 4.35-5.85 10^6/uL Hemoglobin 10.3 L 11.5-16.0 G/DL Hematocrit 32 L 35-52 % Mean Corpuscular Volume 83 80-99 FL Mean Corpuscular Hemoglobin 26 25-34 PG Mean Corpuscular Hemoglobin Concent 32 32-36 G/DL Red Cell Distribution Width 15.9 H 10.0-14.5 % Platelet Count 129 L 130-400 10^3/uL Mean Platelet Volume 10.8 H 7.4-10.4 FL Neutrophils (%) (Auto) 75 42-75 % Lymphocytes (%) (Auto) 18 12-44 % Monocytes (%) (Auto) 6 0-12 % Eosinophils (%) (Auto) 1 0-10 % Basophils (%) (Auto) 0 0-10 % Neutrophils # (Auto) 6.4 1.8-7.8 X 10^3 Lymphocytes # (Auto) 1.6 1.0-4.0 X 10^3 Monocytes # (Auto) 0.5 0.0-1.0 X 10^3 Eosinophils # (Auto) 0.1 0.0-0.3 10^3/uL Basophils # (Auto) 0.0 0.0-0.1 10^3/uL Physical Exam: General - Alert and oriented, no apparent distress Abdomen - Soft, appropriately tender to palpation, non-distended, fundus firm at umbilicus Incision - clean, dry and intact; no erythema or induration, no drainage Extremities - no edema, negative Zina's bilaterally [] Assessment: [] post-operative day # [], status post []. Recovering well, hemodynamically stable Acute blood loss anemia [] Plan: Routine post-operative care. Encourage breast feeding. Encourage ambulation. VTE prophylaxis: SCDs. Ferrous sulfate supplementation. Plan for discharge [] Vitals - Labs Vital Signs - I&O Vital Signs Date Time Temp Pulse Resp B/P (MAP) Pulse Ox O2 Delivery O2 Flow Rate FiO2 08/31/19 08:45 37.0 92 18 129/78 (95) 98 Room Air 08/31/19 04:15 36.8 80 20 120/60 (80) 95 Room Air 08/31/19 00:30 36.4 88 18 142/66 (91) 96 Room Air 08/30/19 20:00 36.7 94 18 133/60 (84) 97 Room Air 08/30/19 16:17 Room Air 08/30/19 15:00 36.8 84 16 128/62 (84) 96 Room Air 08/30/19 14:35 37.3 20 119/59 (79) 98 Room Air 08/30/19 14:35 Room Air 08/30/19 14:29 37.3 20 66/52 (57) 98 Room Air 08/30/19 14:20 Room Air 08/30/19 14:06 Room Air 08/30/19 14:06 37.1 20 122/64 (83) 98 Room Air 08/30/19 13:51 Room Air 08/30/19 13:51 36.8 20 116/53 (74) 99 Room Air I & O 08/31/19 07:00 Intake Total 1050 ml Output Total 300 ml Balance 750 ml Labs Laboratory Tests 08/31/19 05:35: White Blood Count 8.6, Red Blood Count 3.90L, Hemoglobin 10.3L, Hematocrit 32L, Mean Corpuscular Volume 83, Mean Corpuscular Hemoglobin 26, Mean Corpuscular Hemoglobin Concent 32, Red Cell Distribution Width 15.9H, Platelet Count 129L, Mean Platelet Volume 10.8H, Neutrophils (%) (Auto) 75, Lymphocytes (%) (Auto) 18, Monocytes (%) (Auto) 6, Eosinophils (%) (Auto) 1, Basophils (%) (Auto) 0, Ne utrophils # (Auto) 6.4, Lymphocytes # (Auto) 1.6, Monocytes # (Auto) 0.5, Eosinophils # (Auto) 0.1, Basophils # (Auto) 0.0 Microbiology 08/23/19 MRSA Screen - Final, Complete MRSA not isolated RAFAELA FLETCHER DO Aug 31, 2019 12:32
[2019-08-31] MEDS: IBUPROFEN 600 MG (MOTRIN) TAB PO SCH ×2 (14:14→20:16)
[2019-08-31 14:20] VITALS: BP 125/64
[2019-08-31 20:20] VITALS: BP 127/59
--- NOTE | 2019-08-31 20:26 | NUR ---
Pt sitting up on bed with at her side. resting after successful feed. Mother educated on second night and reassured that if needed this RN will assist. Father at bedside and no further questions at this time.
[2019-08-31] MEDS ORDERED: OXC5T PO (22:49)
[2019-08-31] MEDS ORDERED: ACET-93 PO (22:49)
[2019-08-31] MEDS ORDERED: IBUP-844 PO (22:49)
--- NOTE | 2019-08-31 22:51 | Discharge Inst-Women's Service ---
Discharge Inst-Women's Serv Depart Medication/Instructions New, Converted or Re-Newed RX: RX on Chart Final Diagnosis previous section Problems Reviewed?: Yes Consults/Follow Up Additional Follow Up: Yes (1-2 weeks for incision check; 6 week pp exam) Activity Activity: Activity as Tolerated Driving Instructions: No Driving for 1 Week NO SMOKING: NO SMOKING Nothing Inside Vagina: No Douching, No [place], No Tampons Diet Discharge Diet: No Restrictions Symptoms to Report to : Bleeding Excessive, Pain Increased, Fever Over 101 Degrees F, Vaginal Bleeding Increase, Cramps in Feet or Legs, Vaginal Discharge Foul For Any Problems or Questions: Contact Your Physician Skin/Wound Care Infection Signs and Symptoms: Increased Redness, Foul Odor of Wound, Increased Drainage, Skin Itchy or Has a Rash, Increased Swelling, Temperature Above 101 F Operative Area Clean and Dry: Keep Incision Clean/Dry Stitches/Gideon/Dermabond: Dermabond Bathing Instructions: RAFAELA Leija DO Aug 31, 2019 22:51
[2019-09-01] MEDS: IBUPROFEN 600 MG (MOTRIN) TAB PO SCH ×2 (02:49→08:41)
[2019-09-01 03:01] VITALS: BP 165/76
--- NOTE | 2019-09-01 03:02 | NUR ---
Mother woken with on her chest sleeping, mother educated on the safety concerns with co-sleeping, infant to nursery for daily wt and then double wrapped and resting comfortably in crib
--- NOTE | 2019-09-01 07:40 | NUR ---
DR. WHITE HERE TO SEE PT.
--- NOTE | 2019-09-01 07:46 | Postpartum Progress Note ---
Note Note Day # [address] Silva Subjective: Patient is without complaints. Ambulating, voiding. Tolerating a regular diet without nausea or vomiting. Normal lochia. Pain is well controlled with oral pain medications. Objective: Physical Exam: General - Alert and oriented, no apparent distress Abdomen - Soft, appropriately tender to palpation, non-distended, fundus firm at umbilicus Extremities - no edema, negative Zina's bilaterally Incision- c/d/i Assessment: POD 2 RLTCS Plan: Routine care. Encourage breast feeding. Encourage ambulation. Ferrous sulfate supplementation. Plan for discharge today Vitals - Labs Vital Signs - I&O Vital Signs Date Time Temp Pulse Resp B/P (MAP) Pulse Ox O2 Delivery O2 Flow Rate FiO2 09/01/19 03:01 36.7 79 18 165/76 (105) 98 Room Air 08/31/19 20:20 36.8 97 18 127/59 (81) 98 Room Air 08/31/19 14:20 36.8 97 20 125/64 (84) 98 Room Air 08/31/19 08:45 37.0 92 18 129/78 (95) 98 Room Air Labs Microbiology 08/23/19 MRSA Screen - Final, Complete MRSA not isolated JULISA WHITE DO Sep 01, 2019 07:46
[2019-09-01 08:00] VITALS: BP 129/68
--- NOTE | 2019-09-01 08:00 | NUR ---
ASSESSMENT COMPLETED. PLANNING TO GO HOME TODAY. INFORMATION PAPERS GIVEN WELL MENU.
--- NOTE | 2019-09-01 08:30 | NUR ---
ENCOURAGED I.S. EVERY 2 HOURS W/A R/T PT HAVING A COUGH X 2 WEEKS. STATES UNDERSTANDING. AMBULATING IN THE [place] WITHOUT PROBLEMS.
--- NOTE | 2019-09-01 09:30 | NUR ---
CARING FOR INFANT IN ROOM. GOOD INTERACTION NOTED.
--- NOTE | 2019-09-01 12:10 | NUR ---
DISCHARGE INSTRUCTIONS REVIEWED WITH COPY TO PT. RXS GIVEN. STATES UNDERSTANDING OF ALL INSTRUCTIONS AND NEED TO F/U SCHEDULED AND NEEDED. PLAN FOR [employer] FOR LUNCH.
--- NOTE | 2019-09-01 13:00 | NUR ---
EATING [employer] MEAL. WANTING TO FEED BEFORE LEAVES.
[2019-09-01 14:05] VITALS: BP 129/68
--- NOTE | 2019-09-01 14:05 | NUR ---
DISMISSED AMB FROM [facility] WITH INFANT IN STABLE CONDITION TO FAMILY [facility] BY SPOUSE AND ERIKA PIPER RN.
== END 2019-09-01 14:05 | disposition home or self-care (01) | DRG 787 ==
LOC: LDRP 10:15
PROVIDERS: ADMIT Obstetrics & Gynecology; ATTEND Obstetrics & Gynecology
PROC: 10D00Z1 Extraction of Products of Conception, Low, Open Approach (ICD-10-PCS; principal; 2019-08-30 12:33)
DX: O34.211 Maternal care for low transverse scar from previous cesarean delivery (principal); O69.81X0 Labor and delivery complicated by cord around neck, without compression, not applicable or unspecified; O26.893 Other specified pregnancy related conditions, third trimester; D28.2 Benign neoplasm of uterine tubes and ligaments; O90.81 Anemia of the puerperium; D62 Acute posthemorrhagic anemia; Z37.0 Single live birth; Z3A.39 39 weeks gestation of pregnancy
CPT/HCPCS: 36415; 80053; 85025; 86850; 86900; 86901; 87081; 94664